=== PATIENT | male | born 1945 | race Caucasian/White ===

== ENCOUNTER 2016-09-30 12:44 | Day surgery (SDC) | payer MEDICARE ==
[~2016-09-30] VITALS: Ht 190.5 cm; Wt 107.0 kg
[~2016-09-30 12:44] MED LIST: GLUC100016 PO; LIDO1ADH44 TP; LOSA25TA21 PO; MULT-1073 PO; SILD100T PO; fentaNYL-PF 50 mCg/mL 2 mL Inj IVPUSH PRN
[2016-09-30 13:09] VITALS: BP 172/97; PULSE 55; RESP 16; O2SAT 97
[2016-09-30] MEDS ORDERED: Lactated Ringer's 1,000 ML IV SCH (13:47)
--- NOTE | 2016-09-30 13:47 | PCM.HPANE ---
Patient Data Surgeon Admitting Provider: Attending Provider:Paulina Murrieta MD Primary Care Physician:Joaquin Elizabeth MD Other Provider:Jessica De La Garzaingham Anesthesia Reason for Visit Tubulovillous Adenoma Ht/WT & BMI Height (Feet): 6 Height (Inches): 3 Weight (Kilograms): 107 Body Mass Index 29.00 Allergies Coded Allergies: amlodipine (Verified Allergy, Unknown, 09/29/16) codeine (Verified Allergy, Unknown, 09/29/16) lisinopril (Verified Allergy, Unknown, 09/29/16) Past Anesthesia History Anesthesia History: Denies:: Abnormal Airway, Anesthesia Reactions, Difficult Intubation, Fam Anesthesia Reaction, Fam Malignant Hypertherm, Malignant Hyperthermia Diabetes History Hx Diabetes?: No MRSA MRSA: No Medications Home Meds Incl Beta Sofía: No Reported Medications Sildenafil Citrate (Viagra)100 Mg [id number] Mg PO UD PRN ed Ref 0 09/29/16 Losartan Potassium 25 Mg [id number] Mg PO DAILY 09/29/16 Glucosamine Sulfate 2Kcl (Glucosamine)1,000 Mg Tablet1,500 Mg PO DAILY 09/29/16 Multivits-Min/FA/Lycopene/Lut (Centrum Silver Tablet)1 Each Tablet1 Each PO DAILY 09/29/16 Lidocaine (Aspercreme)4 % Adh..patch1 Each TP 09/29/16 History History of ENT Problems?: No HEENT History: Denies:: Abnormal Airway Difficult Intubation Dysphagia Hearing Problem Denture Type: None Teeth Condition: Within Normal Limits Hx of Heart Problems?: Yes Cardiovascular History: Positive for:: Hypertension Denies:: AICD Atrial Fibrillation Chest Pain Pacemaker Valvular Heart Disease Hx of Respiratory Problem?: No Respiratory History: Denies:: Asthma COPD Chest Surgery Cough Dyspnea Emphysema Hemoptysis Oxygen Administration Pneumonia Pulmonary Embolism Tuberculosis Use of C-PAP Machine Use of Inhalers / NEBS Hx Neurologic Problems?: No Neurological History: Denies:: CVA Hx of GI Problems?: Yes Hx of Problems?: No Hx Musculoskeletal Problems?: No Musculoskeletal History: Denies:: Fibromyalgia Joint Replacement Psycho Social History: Denies:: Anxiety Hx Depression Hx Surgeries?: Yes (knee scope) Hx Any Other Health Problems?: Yes Hx Diabetes: No Hx Alcohol Use: Yes (DAILY) Stop/Bang Treated for Sleep Apnea?: No Do You Have a CPAP Machine?: No S-Snoring: Do You Snore Loudly: No T-Tired: feel tired, fatigued: No O-Obsered: Observed not breath: No P-Blood Pressure: treated: Yes B- Body Mass Index > 35 kg/m2: No A- Age over 50: Yes N- Neck Large Circumference: No G- Gender Male: Yes PATRICIA Total Score: 3 PATRICIA Risk Assessment: Low Risk, <3 Yes PATRICIA Category 2: Yes Risk Assessment Category Category 1A: Patient has history of documented sleep apnea, and HAS NOT received any narcotic, sedative or anesthesia administration during this stay. Category 1B: Patient has history of documented sleep apnea, and HAS received any narcotic , sedative or anesthesia administration during this stay Category 2: Patient has SUSPECTED Obstructive Sleep Apnea, and HAS received any narcotic , sedative or anesthesia administration during this stay. Category 3: Patient has SUSPECTED Obstructive Sleep Apnea and HAS NOT received narcotic, sedative or anesthesia administration during this stay. Category 4: Outpatient in Procedural Areas with known sleep apnea or who screen positive for High Risk via the STOP/BANG questionnaire. Exam Exam Vital Signs Vital Signs Date Time Temp Pulse Resp B/P Pulse Ox O2 Delivery O2 Flow Rate FiO2 09/30/16 13:09 55 16 172/97 97 Room Air General Appearance: Oriented X3 HEENT/AIRWAY: MP 2 Lungs: Normal Air Movement Heart: Regular Rate/Rhythm Plan Impression Patient chart reviewed, patient interviewed and anesthestic plan with risks, benefits, and alternatives discussed, and informed consent obtained. ASA Physical Status: ASA2 Mod Systemic Disease Anesthetic Plan: MAC Bene/Risks/Altern/Consents: Yes HP Complete Prior to Induction: Yes Rajat Silva MD Sep 30, 2016 13:47
[2016-09-30] MEDS ORDERED: MetoCLOpramide 5 mg/mL 2 mL Inj IVPUSH PRN (13:50)
[2016-09-30] MEDS ORDERED: Ondansetron 2 mg/mL 2 mL Inj IVPUSH PRN (13:50)
[2016-09-30 15:18] VITALS: BP 146/82; PULSE 60; RESP 16; O2SAT 98
[2016-09-30 15:28] VITALS: BP 148/80; PULSE 48; RESP 16; O2SAT 100
[2016-09-30 15:33] VITALS: BP 144/88; PULSE 47; RESP 16; O2SAT 97
--- NOTE | 2016-09-30 16:39 | ENDO ---
[address] [address] ENDOSCOPY PROCEDURE PATIENT: NING COFFEY : 1945 MR#: [id number] ADMIT: 09/30/2016 JOB ID: [id number] DATE OF SERVICE: 09/30/2016 PRE-PROCEDURAL DIAGNOSIS: History of tubulovillous adenoma of the right colon. POST-PROCEDURAL DIAGNOSIS: History of tubulovillous adenoma of the right colon. PROCEDURE PERFORMED: Colonoscopy. Polypectomy was performed of two small right colon polyps, but could not be retrieved. INSTRUMENT: Olympus PCFH-180AL ANESTHESIA: Monitored anesthesia care. WITHDRAWAL TIME: 22 minutes. PREPARATION: Adequate. HISTORY OF PRESENT ILLNESS: This is a 70-year-old man who has a history of fragments of tubulovillous adenomas in the right colon, which were removed during colonoscopy in 2011. He was therefore scheduled for repeat colonoscopy. FINDINGS: 1. Sigmoid diverticulosis. 2. Two right colon polyps, 1 cm and 2 cm in size, excised with snare cautery. DESCRIPTION OF PROCEDURE: The patient was brought to the Endoscopy Suite, and placed in left lateral decubitus position. Monitored anesthesia care was performed. Digital rectal examination was performed and the prostate was mildly enlarged but otherwise normal. The colonoscope was advanced to the cecum which was identified by the ileocecal valve and the appendiceal orifice. There were two small polyps in the cecum, one was approximately 2 cm in size and pedunculated, and the other was 1 cm in size and pedunculated. Snare cautery was performed to excise completely both polyps. One was suctioned into the endoscope but had not been yet retrieved at the time of this dictation. The other was attempted to be retrieved with a Varela net, however, could not be placed and therefore was lost and not retrieved. The colonoscope was slowly withdrawn over the course of 22 minutes. Sigmoid diverticulosis was seen. The prep was good. There were no other masses or polyps identified. Retroflexed examination of the rectum revealed internal hemorrhoids. The patient tolerated the procedure well on monitored anesthesia care. ESTIMATED BLOOD LOSS: None. SPECIMENS: Specimen will be retrieved using the basket at home. COMPLICATIONS: None. DISPOSITION: Recommend repeat colonoscopy in one year given that the appearance of the polyps is very similar to those seen on previous colonoscopy, in the same location.
--- NOTE | 2016-10-02 15:32 | PATH ---
SURGICAL PATHOLOGY Attending Physician:Paulina Murrieta MD CASE STATUS: Signed Out PATIENT NAME: NING COFFEY PID: [id number] : 1945 DATE COLLECTED:09/30/2016 00:00 SPECIMEN: Colon, Polyp CLINICAL HISTORY: 1). CECAL POLYP FINAL DIAGNOSIS: 1.CECAL POLYPS, BIOPSY: VEGETABLE MATERIAL; NO COLONIC TISSUE IDENTIFIED. ICD10 K63.5 GROSS DESCRIPTION: The specimen is received in one formalin filled container labeled with the patient's name, sublabeled "cecal polyps and consists of 2 yellow-medina friable portions of tissue which are entirely submitted in one cassette. 10/01/2016DC MICRO DESCRIPTION: See diagnosis. ICD-9 CODES: CPT CODES: 1: 29370 Electronically Signed Out Johnathan East MD, Ph.D. [facility] Pathology [facility], [place] [address] Technical component performed at [facility], [address] [place] [address] [address], [address]
== END 2016-09-30 23:59 | disposition home or self-care (01) ==
LOC: END 12:44
PROVIDERS: ATTEND Surgery
DX: Z12.11 Encounter for screening for malignant neoplasm of colon (principal); K63.5 Polyp of colon; K57.30 Diverticulosis of large intestine without perforation or abscess without bleeding; K64.8 Other hemorrhoids; Z86.010 Personal history of colon polyps; I10 Essential (primary) hypertension; E78.5 Hyperlipidemia, unspecified
CPT/HCPCS: 45385; J7030; J7120